=== PATIENT | female | born 1940 | race Caucasian/White ===

== ENCOUNTER 2024-02-14 13:32 | Inpatient (IN) | payer MEDICARE, SELFPAY ==
[~2024-02-14 13:32] MED LIST: Iopamidol-370 76% 500 ML MDV (1 ML CHARGE) ONE
[2024-02-14] MEDS ORDERED: Magnesium 2 GM/50 ML BAG (IN WATER) ONE (13:51)
[2024-02-14] MEDS ORDERED: Ipratropium/Albuterol 3 ML NEB ONE (13:51)
[2024-02-14] MEDS ORDERED: methylPREDNISolone Sod Succ/PF 125 MG/2 ML VIAL ONE (13:51)
[2024-02-14 14:10] LABS: Actual Bicarbonate (HCO3v) 20.8 mEq/L (22-28); Base Excess -2.2 mEq/L (-2.0 to +3.0); Calcium, Ionized (venous) 1.12 mmol/L (1.16-1.32); Chloride (VBG) 103 mmol/L (98-106); Hematocrit-VBG 30 % (36.0-47.0); Hemoglobin (Hb) 10.3 g/dL (11.7-16.1); Potassium (VBG) 4.05 mmol/L (3.70-5.30); Sodium 137 mmol/L (133-146); pH (venous) 7.467 (7.32-7.43)
[2024-02-14 14:11] LABS: #Basophils 0.06 10x3/uL (0.0-0.2); %Basophils 0.4 % (0.0-1.0); %Eosinophils 1.7 % (0.0-10.0); %Neutrophils 83.4 % (42.0-75.0); Hemoglobin 9.3 g/dL (12.0-16.0); Mean Corpuscular HGB CONC 32.1 g/dL (32.0-36.0); Mean Corpuscular Hemoglobin 30.6 pg (27.0-31.0); Mean Corpuscular Volume 95.4 fL (78.0-98.0); Mean Platelet Volume 11.3 fL (7.4-10.4); Platelet Count 196 10x3/uL (130-400); Red Blood Cell (RBC) Count 3.04 mill/uL (4.20-5.40)
[2024-02-14 14:25] LABS: Globulin 3.2 g/dL (2.4-3.5)
[2024-02-14 14:29] LABS: ALT (SGPT) 24 U/L (8-55); AST (SGOT) 30 U/L (5-34); Albumin 3.3 g/dL (3.4-4.8); Alkaline Phosphatase 53 U/L (40-110); Anion Gap 14 mmol/L (10-20); BUN (Urea Nitrogen) 34 mg/dL (9.8-20.1); Bilirubin, Total 0.5 mg/dL (0.2-1.2); Calc. Creatinine Clearance 0 mL/min (70-130); Calcium 9.5 mg/dL (7.8-10.44); Carbon Dioxide 21 mmol/L (23-31); Chloride 107 mmol/L (98-107); Estimated GFR 31; Glucose 123 mg/dL (83-110); Magnesium 2.1 mg/dL (1.6-2.6); Potassium 4.1 mmol/L (3.5-5.1); Protein, Total 6.5 g/dL (5.8-8.1); Sodium 138 mmol/L (136-145)
[2024-02-14 14:33] LABS: Troponin I 0.069 ng/mL (< 0.028)
[2024-02-14 14:48] LABS: Influenza A by NAA Not Detected (NotDetected); Influenza B by NAA Not Detected (NotDetected); SARS-CoV-2 NAA Rapid Test Not Detected (NotDetected)
[2024-02-14] MEDS ORDERED: Furosemide 40 MG (4 mL) VIAL ONE (16:07)
[2024-02-14] MEDS ORDERED: Albuterol 2.5 MG (0.5 mL) NEB ONE (16:07)
[2024-02-14] MEDS ORDERED: Ipratropium Bromide 2.5 ml Neb ONE (16:07)
[2024-02-14] MEDS ORDERED: Sodium Chloride 0.9% 100 ML ONE (16:16)
[2024-02-14] MEDS ORDERED: cefTRIAXone (ROCEPHIN) 2 GM VIAL ONE (16:16)
[2024-02-14] MEDS ORDERED: Azithromycin 500 MG VIAL ONE (16:38)
[2024-02-14] MEDS ORDERED: Ondansetron PF 4 MG/2 ML Vial IVP PRN (17:07)
[2024-02-14] MEDS ORDERED: Ondansetron ODT 4 MG TAB PO PRN (17:07)
[2024-02-14] MEDS ORDERED: Guaifenesin DM 100-10/5 ML UDCUP PO PRN (17:07)
[2024-02-14] MEDS ORDERED: Acetaminophen 650 MG Suppository PR PRN (17:07)
[2024-02-14] MEDS ORDERED: Acetaminophen 325 MG TAB PO PRN (17:07)
[2024-02-14] MEDS ORDERED: Ipratropium/Albuterol 3 ML NEB NEB PRN (17:16)
[2024-02-14 17:28] LABS: Bacteria/HPF None Seen HPF (None Seen); Bilirubin Negative (Negative); Blood, Urine Negative (Negative); CAUTI Indications for Culture Dysuria,urgency,freq; Clarity Clear (Clear); Glucose, Urine (Dipstick) Normal (Negative); Ketone, Urine Negative (Negative); Leukocyte 250 Leu/uL (Negative); Nitrite Negative (Negative); Protein, Urine (Dipstick) Negative (Neg-Trace); RBC/HPF None Seen HPF (0-3); Specific Gravity, Urine 1.019 (1.002-1.036); Urobilinogen Normal mg/dL (Less than 2); WBC/HPF 21-50 HPF (0-3); pH, Urine 5.5 (5.0-9.0)
[2024-02-14 17:29] LABS: Urine Culture Reflex Yes Yes
[2024-02-14 20:37] VITALS: BMI 27.5
[2024-02-14] MEDS: methylPREDNISolone Sod Succ 40 MG VIAL IVP SCH (23:26)
[2024-02-14] MEDS: Benzonatate 100 MG CAP PO SCH (23:30)
[2024-02-14] MEDS: guaiFENesin ER 600 MG TAB PO SCH (23:30)
[2024-02-15 00:42] LABS: Legionella Urinary Ag Negative (Negative); Strep pneumo Urine Ag NEGATIVE (NEGATIVE)
[2024-02-15 05:42] LABS: Anion Gap 19 mmol/L (10-20); BUN (Urea Nitrogen) 33 mg/dL (9.8-20.1); Calc. Creatinine Clearance 33 mL/min (70-130); Calcium 9.5 mg/dL (7.8-10.44); Carbon Dioxide 17 mmol/L (23-31); Chloride 109 mmol/L (98-107); Estimated GFR 35; Glucose 143 mg/dL (83-110); Potassium 4.1 mmol/L (3.5-5.1); Sodium 141 mmol/L (136-145)
[2024-02-15 06:27] LABS: #Basophils Less than 0.03 10x3/uL (0.0-0.2); #Eosinphils Less than 0.03 10x3/uL (0.0-0.7); %Basophils 0.1 % (0.0-1.0); %Lymphocytes 8.4 % (21.0-51.0); %Monocytes 1.9 % (0.0-10.0); %Neutrophils 89.3 % (42.0-75.0); Hematocrit 29.2 % (36.0-47.0); Hemoglobin 9.4 g/dL (12.0-16.0); Mean Corpuscular HGB CONC 32.2 g/dL (32.0-36.0); Mean Corpuscular Hemoglobin 31.1 pg (27.0-31.0); Mean Corpuscular Volume 96.7 fL (78.0-98.0); Mean Platelet Volume 11.4 fL (7.4-10.4); Platelet Count 214 10x3/uL (130-400); RBC Distribution Width 12.5 % (11.5-14.5); Red Blood Cell (RBC) Count 3.02 mill/uL (4.20-5.40)
[2024-02-15] MEDS: Pantoprazole DR 40 MG TAB PO SCH (08:20)
[2024-02-15] MEDS: Acetylcysteine 20% 200 MG/ML 30 ML VIAL INH SCH ×2 (14:07→14:09)
[2024-02-15] MEDS: Ipratropium/Albuterol 3 ML NEB NEB SCH (14:09)
[2024-02-15] MEDS: cefTRIAXone\\ROCEPHIN 1 GM in Sodium Chloride 0.9% 100 ML IVPB SCH (16:52)
[2024-02-15] MEDS: Azithromycin 500 MG in Sodium Chloride 0.9% 250 ML 250 ML IVPB SCH (16:52)
[2024-02-16 06:07] LABS: #Basophils Less than 0.03 10x3/uL (0.0-0.2); #Eosinphils Less than 0.03 10x3/uL (0.0-0.7); %Basophils 0.1 % (0.0-1.0); %Eosinophils 0.1 % (0.0-10.0); %Lymphocytes 5.2 % (21.0-51.0); Hematocrit 33.8 % (36.0-47.0); Hemoglobin 10.6 g/dL (12.0-16.0); Mean Corpuscular HGB CONC 31.4 g/dL (32.0-36.0); Mean Corpuscular Hemoglobin 31.1 pg (27.0-31.0); Mean Corpuscular Volume 99.1 fL (78.0-98.0); Mean Platelet Volume 11.7 fL (7.4-10.4); Platelet Count 254 10x3/uL (130-400); RBC Distribution Width 12.6 % (11.5-14.5); Red Blood Cell (RBC) Count 3.41 mill/uL (4.20-5.40)
[2024-02-16 06:35] LABS: Anion Gap 20 mmol/L (10-20); BUN (Urea Nitrogen) 35 mg/dL (9.8-20.1); Calc. Creatinine Clearance 39 mL/min (70-130); Calcium 10.3 mg/dL (7.8-10.44); Carbon Dioxide 20 mmol/L (23-31); Chloride 109 mmol/L (98-107); Estimated GFR 42; Glucose 117 mg/dL (83-110); Sodium 144 mmol/L (136-145)
[2024-02-16] MEDS: Labetalol HCl 100 MG/20 ML VIAL SLOW IVP PRN (08:12)
[2024-02-16] MEDS ORDERED: PROPOFOL 200 MG/20 ML VIAL ONE (11:00)
[2024-02-16] MEDS ORDERED: Rocuronium Bromide 10 MG/ML (10ML VIAL) ONE (11:00)
[2024-02-16] MEDS ORDERED: Ventilator Sedation Protocol 1 EACH FS SCH (11:45)
[2024-02-16] MEDS ORDERED: Propofol BOLUS 1,000 MG/100 ML VIAL IV PRN (12:00)
[2024-02-16] MEDS ORDERED: Morphine 2 MG/ML VIAL SLOW IVP PRN (12:00)
[2024-02-16] MEDS ORDERED: DISCONTINUE PREVIOUS NARCOTIC PAIN MEDICATIONS AND BENZODIAZEPINES FS SCH (12:00)
[2024-02-16] MEDS ORDERED: Fentanyl BOLUS 250 ML IVPB PRN (12:00)
[2024-02-16] MEDS ORDERED: Fentanyl CADD 100 ML IV SCH (12:00)
[2024-02-16 12:18] LABS: Base Excess (BEa) -2.1 mEq/L (-2.0 to +3.0); CO2 Tension 54.6 mmHg (35.0-45.0); Calcium, Ionized (arterial) 1.32 mmol/L (1.12-1.30); Carboxyhemoglobin (COHb) 0.3 gm% (0.0-3.0); Hematocrit-ABG 30 % (36.0-47.0); Hemoglobin (Hb) 10.2 g/dL (12.0-16.0); O2 Tension (PaO2), arterial 103.9 mmHg (> 60.0); Potassium - ABG Lab 3.57 mmol/L (3.70-5.30); pH, Arterial 7.279 (7.35-7.45)
[2024-02-16 12:21] LABS: Puncture Site RRA
[2024-02-16] MEDS: fentaNYL 50 mcg/mL 1 mL Vial ONE (12:35)
[2024-02-16] MEDS: Propofol 1,000 MG/100 ML VIAL IV ONE (12:35)
[2024-02-16] MEDS: Fentanyl CADD 100 ML ONE (12:36)
[2024-02-16] MEDS: Lorazepam 2 MG/ML VIAL SLOW IVP PRN (12:45)
[2024-02-16] MEDS: PROPOFOL 200 MG/20 ML VIAL IVP SCH (13:43)
[2024-02-16] MEDS: Rocuronium Bromide 50 MG/5 ML VIAL IVP SCH (13:43)
[2024-02-16] MEDS: fentaNYL 50 mcg/mL 1 mL Vial SLOW IVP SCH (13:44)
[2024-02-16] MEDS: Propofol 1,000 MG/100 ML VIAL IV PRN (14:53)
[2024-02-16] MEDS: Furosemide 40 MG (4 mL) VIAL SLOW IVP SCH (16:28)
[2024-02-17] MEDS: hydrALAZINE 20 MG/ML VIAL SLOW IVP PRN (00:02)
[2024-02-17 06:12] LABS: #Basophils Less than 0.03 10x3/uL (0.0-0.2); %Basophils 0.2 % (0.0-1.0); %Eosinophils 0.9 % (0.0-10.0); %Lymphocytes 12.1 % (21.0-51.0); %Monocytes 8.2 % (0.0-10.0); %Neutrophils 77.6 % (42.0-75.0); Hematocrit 29.7 % (36.0-47.0); Hemoglobin 9.6 g/dL (12.0-16.0); Mean Corpuscular HGB CONC 32.3 g/dL (32.0-36.0); Mean Corpuscular Hemoglobin 31.6 pg (27.0-31.0); Mean Corpuscular Volume 97.7 fL (78.0-98.0); Platelet Count 234 10x3/uL (130-400); RBC Distribution Width 12.5 % (11.5-14.5); Red Blood Cell (RBC) Count 3.04 mill/uL (4.20-5.40)
[2024-02-17 06:45] LABS: Anion Gap 17 mmol/L (10-20); BUN (Urea Nitrogen) 33 mg/dL (9.8-20.1); Calc. Creatinine Clearance 39 mL/min (70-130); Calcium 9.9 mg/dL (7.8-10.44); Carbon Dioxide 25 mmol/L (23-31); Chloride 108 mmol/L (98-107); Estimated GFR 45; Glucose 101 mg/dL (83-110); Potassium 3.3 mmol/L (3.5-5.1); Sodium 147 mmol/L (136-145)
[2024-02-17] MEDS: Lansoprazole 15 MG/5 ML (BATCHED)UDCUP PER TUBE SCH (07:59)
[2024-02-17] MEDS: Carvedilol 6.25 MG TAB PO SCH ×2 (09:18→16:48)
[2024-02-17] MEDS: Amlodipine 10 MG TAB PO SCH (09:19)
[2024-02-17] MEDS: Furosemide 40 MG (4 mL) VIAL SLOW IVP SCH (09:19)
[2024-02-17] MEDS ORDERED: Potassium Chloride 40 MEQ in Premix 1 BAG IVPB SCH (11:15)
[2024-02-17] MEDS: Potassium Chloride 20 MEQ in Premix 1 BAG IVPB SCH (11:16)
[2024-02-17] MEDS: hydrALAZINE 25 MG TAB PO SCH (15:11)
[2024-02-18 04:31] LABS: #Basophils 0.04 10x3/uL (0.0-0.2); #Eosinphils Less than 0.03 10x3/uL (0.0-0.7); %Basophils 0.3 % (0.0-1.0); %Lymphocytes 7.4 % (21.0-51.0); %Monocytes 2.8 % (0.0-10.0); %Neutrophils 88.5 % (42.0-75.0); Hematocrit 34.3 % (36.0-47.0); Mean Corpuscular HGB CONC 32.1 g/dL (32.0-36.0); Mean Corpuscular Hemoglobin 30.6 pg (27.0-31.0); Mean Corpuscular Volume 95.5 fL (78.0-98.0); Mean Platelet Volume 11.3 fL (7.4-10.4); Platelet Count 244 10x3/uL (130-400); RBC Distribution Width 12.4 % (11.5-14.5); Red Blood Cell (RBC) Count 3.59 mill/uL (4.20-5.40)
[2024-02-18 04:57] LABS: Anion Gap 19 mmol/L (10-20); BUN (Urea Nitrogen) 36 mg/dL (9.8-20.1); Calc. Creatinine Clearance 38 mL/min (70-130); Calcium 10.5 mg/dL (7.8-10.44); Carbon Dioxide 25 mmol/L (23-31); Chloride 106 mmol/L (98-107); Estimated GFR 44; Glucose 119 mg/dL (83-110); Potassium 3.5 mmol/L (3.5-5.1); Sodium 146 mmol/L (136-145)
[2024-02-18] MEDS: Amlodipine 10 MG TAB PO SCH (07:48)
[2024-02-18] MEDS: Dextrose 5% in Water 1,000 ML IV SCH (09:37)
[2024-02-18] MEDS: Heparin 5,000 UNITS/ML VIAL SC SCH (09:37)
[2024-02-18] MEDS: Acetylcysteine (MUCOMYST) 200 MG/ML (10 ML VIAL) NEB SCH ×2 (11:17→18:04)
[2024-02-18] MEDS: GUAIFENESIN SF SOLN 200 MG/10 ML UDCUP PER TUBE SCH (14:39)
[2024-02-18] MEDS: Morphine 2 MG/ML VIAL SLOW IVP PRN (16:20)
[2024-02-18] MEDS: GLYCOPYRROLATE/PF 0.2 MG/ML VIAL SLOW IVP SCH (16:21)
[2024-02-18] MEDS ORDERED: Morphine 10 MG/0.5 ML ORAL SYRINGE SL PRN (16:53)
[2024-02-18] MEDS ORDERED: Morphine 2 MG/ML VIAL SLOW IVP PRN (17:02)
[2024-02-18] MEDS: Morphine 20 MG/ML Oral Solution (ROXANOL) SL PRN (18:19)
[2024-02-18] MEDS: Scopolamine 1 mg/72 hour Patch TOP PRN (18:24)
[2024-02-18] MEDS ORDERED: Sodium Chloride 3% (15 ML) NEB NEB SCH (19:00)
[2024-02-18] MEDS ORDERED: Carvedilol 6.25 MG TAB PO SCH (21:00)
[2024-02-20 07:19] LABS: #Basophils 0.03 10x3/uL (0.0-0.2); %Basophils 0.2 % (0.0-1.0); %Lymphocytes 12.1 % (21.0-51.0); %Neutrophils 80.7 % (42.0-75.0); Hematocrit 34.9 % (36.0-47.0); Hemoglobin 11.1 g/dL (12.0-16.0); Mean Corpuscular HGB CONC 31.8 g/dL (32.0-36.0); Mean Corpuscular Hemoglobin 30.8 pg (27.0-31.0); Mean Corpuscular Volume 96.9 fL (78.0-98.0); Mean Platelet Volume 10.9 fL (7.4-10.4); Platelet Count 288 10x3/uL (130-400); RBC Distribution Width 12.3 % (11.5-14.5)
[2024-02-20 07:45] LABS: Anion Gap 18 mmol/L (10-20); BUN (Urea Nitrogen) 34 mg/dL (9.8-20.1); Calc. Creatinine Clearance 45 mL/min (70-130); Calcium 10.4 mg/dL (7.8-10.44); Carbon Dioxide 24 mmol/L (23-31); Chloride 111 mmol/L (98-107); Estimated GFR 54; Glucose 100 mg/dL (83-110); Potassium 3.6 mmol/L (3.5-5.1); Sodium 149 mmol/L (136-145)
[2024-02-20 08:29] VITALS: TEMP 98
[2024-02-20] MEDS: Lorazepam 2 MG/ML VIAL SLOW IVP PRN (11:24)
[2024-02-20 12:42] VITALS: BP 172/84
== END 2024-02-20 15:58 | disposition hospice, home (50) | DRG 208 ==
LOC: ERS 13:32 → IMCU/EMU 16:47 → CCU 02-16 10:45 → T4-A 02-18 16:47
PROVIDERS: ADMIT Hospitalist; ATTEND Internal Medicine
PROC: 5A09357 Assistance with Respiratory Ventilation, Less than 24 Consecutive Hours, Continuous Positive Airway Pressure (ICD-10-PCS; 2024-02-14)
PROC: 5A1945Z Respiratory Ventilation, 24-96 Consecutive Hours (ICD-10-PCS; principal; 2024-02-16)
PROC: 0BH17EZ Insertion of Endotracheal Airway into Trachea, Via Natural or Artificial Opening (ICD-10-PCS; 2024-02-16)
PROC: 4A033R1 Measurement of Arterial Saturation, Peripheral, Percutaneous Approach (ICD-10-PCS; 2024-02-16)
DX: J18.9 Pneumonia, unspecified organism (principal); I50.33 Acute on chronic diastolic (congestive) heart failure; J96.21 Acute and chronic respiratory failure with hypoxia; J44.1 Chronic obstructive pulmonary disease with (acute) exacerbation; N17.9 Acute kidney failure, unspecified; E87.20 Acidosis, unspecified; Z51.5 Encounter for palliative care; I11.0 Hypertensive heart disease with heart failure; Z66 Do not resuscitate; D72.829 Elevated white blood cell count, unspecified; D64.9 Anemia, unspecified; R79.89 Other specified abnormal findings of blood chemistry; K21.9 Gastro-esophageal reflux disease without esophagitis; Z99.3 Dependence on wheelchair; Z88.2 Allergy status to sulfonamides
CPT/HCPCS: 31624; 36415; 36600; 71045; 71275; 80048; 80053; 81001; 82805; 83605; 83735; 83880; 84484; 85025; 85379; 87040; 87070; 87077; 87086; 87149; 87205; 87449; 87899; 93005; 93306; 94002; 94003; 94640; 94660; 96365; 96367; 96374; 96375; J0132; J0360; J0456; J0696; J1644; J1940; J2060; J2272; J2704; J2920; J2930; J3010; J3475; J3480; J3490; J7050; J7070; J7608; J7611; J7620; Q9967